=== PATIENT | female | born 2000 | race Hispanic/Latino ===

== ENCOUNTER 2021-03-21 15:44 | Outpatient (CLI) | payer OTHER | END 2021-03-21 15:45 | disposition home or self-care (01) | LOC: CSHULT 15:44 | PROVIDERS: ATTEND Family Medicine | DX: Z34.82 Encounter for supervision of other normal pregnancy, second trimester (principal); Z3A.25 25 weeks gestation of pregnancy | CPT/HCPCS: 76805 ==

== ENCOUNTER 2021-06-17 09:10 | Inpatient (IN) | payer OTHER ==
[2021-06-17] MEDS ORDERED: hydrALAZINE 20 MG/ML VIAL SLOW IVP PRN ×3 (09:39→22:37)
[2021-06-17 09:46] VITALS: BMI 31.8
[2021-06-17 10:21] LABS: Fetal Membranes Rupture RUPTURE DETECTED (No Rupture)
[2021-06-17] MEDS ORDERED: Butorphanol Tartrate 1 MG/ML VIAL SLOW IVP PRN (10:32)
[2021-06-17] MEDS ORDERED: Diphenoxylate HCl/Atropine Tablet PO PRN ×2 (10:32)
[2021-06-17] MEDS ORDERED: Ondansetron PF 4 MG/2 ML Vial IVP PRN ×2 (10:32→22:37)
[2021-06-17] MEDS ORDERED: HYDROcodone/Acetaminophen 5/325 mg Tablet PO PRN ×4 (10:32→22:37)
[2021-06-17] MEDS ORDERED: Methylergonovine 0.2 MG/ML VIAL IM PRN (10:32)
[2021-06-17] MEDS ORDERED: Promethazine HCl 25 MG/ML VIAL IM PRN ×2 (10:32→22:37)
[2021-06-17] MEDS ORDERED: Acetaminophen 500 MG TAB PO PRN (10:32)
[2021-06-17] MEDS ORDERED: Carboprost 250 MCG/ML AMP IM PRN (10:32)
[2021-06-17] MEDS ORDERED: Misoprostol 200 MCG TAB PR PRN (10:32)
[2021-06-17] MEDS ORDERED: Ibuprofen 800 MG TAB PO PRN (10:32)
[2021-06-17] MEDS ORDERED: Lidocaine 1% (PF) 30 ML VIAL SC PRN (10:32)
[2021-06-17] MEDS ORDERED: NS w/ Oxytocin 30 units 500 ML IV SCH ×2 (10:45→22:37)
[2021-06-17] MEDS ORDERED: Lactated Ringer's 1,000 ML IV SCH (10:45)
[2021-06-17] MEDS: NS w/ Oxytocin 30 units 500 ML IV SCH ×2 (11:28→20:46)
[2021-06-17 11:46] LABS: Hemoglobin 11.4 g/dL (12.0-15.5); Mean Corpuscular Hemoglobin 33.9 pg (27.0-33.0); Mean Corpuscular Volume 99.7 fl (81.6-98.3); Mean Platelet Volume 9.9 fl (7.4-10.4); Platelet Count 286 10x3/uL (150-450); RBC Distribution Width 12.3 % (11.5-14.5); Red Blood Cell (RBC) Count 3.36 10x6/uL (3.90-5.03); White Blood Cell (WBC) Count 7.5 10x3/uL (3.5-10.5)
[2021-06-17 12:22] LABS: SARS-CoV-2 NAA Rapid Test DETECTED (NotDetected)
[2021-06-17 12:24] LABS: Hep B Surf Ag Non-Reactive S/CO (NonReactive); Syphilis Antibody Nonreactive (Nonreactive); Syphilis Antibody Index 0.03 S/CO (<1.00 Non-Reactive)
[2021-06-17 12:44] LABS: HBSAg Index 0.17 S/CO (0-0.99)
[2021-06-17] MEDS ORDERED: Fentanyl 2 mcg/Bup 0.1% Cadd 100 ML ONE (16:34)
[2021-06-17] MEDS ORDERED: Mineral Oil ENEMA ONE (17:32)
[2021-06-17] MEDS ORDERED: Benzocaine-Menthol 82.5 ML CAN TOP PRN (22:37)
[2021-06-17] MEDS ORDERED: Boostrix 0.5 ML (Tdap) VIAL IM ONE (22:37)
[2021-06-17] MEDS ORDERED: Milk Of Magnesia 30 ML UDCUP PO PRN (22:37)
[2021-06-17] MEDS ORDERED: diphenhydrAMINE 25 MG CAP PO PRN (22:37)
[2021-06-17] MEDS ORDERED: Bisacodyl 10 MG SUPP PR PRN (22:37)
[2021-06-17] MEDS ORDERED: Lanolin Ointment 7 GM TUBE TOP PRN (22:37)
[2021-06-18] MEDS: Ibuprofen 800 MG TAB PO SCH ×4 (05:08→22:21)
[2021-06-18] MEDS ORDERED: Prenatal Vitamin 1 TAB PO SCH (09:00)
[2021-06-18] MEDS: Docusate Calcium (SURFAK) 240 MG CAP PO SCH ×3 (10:21→22:22)
[2021-06-18] MEDS: Ferrous Sulfate 325 MG TAB PO SCH ×2 (10:47→16:01)
[2021-06-18 11:33] VITALS: BP 115/62
[2021-06-18 16:00] VITALS: TEMP 98.8
[2021-06-19] MEDS: Ibuprofen 800 MG TAB PO SCH (06:25)
[2021-06-19] MEDS: Ferrous Sulfate 325 MG TAB PO SCH (08:01)
== END 2021-06-19 10:20 | disposition home or self-care (01) | DRG 805 ==
LOC: CSHLD/OP 09:10 → CSHLD 17:09 → CSHANTE 06-18 09:53
PROVIDERS: ADMIT Family Medicine; ATTEND Family Medicine
PROC: 10E0XZZ Delivery of Products of Conception, External Approach (ICD-10-PCS; principal; 2021-06-17)
DX: O42.02 Full-term premature rupture of membranes, onset of labor within 24 hours of rupture (principal); U07.1 COVID-19; Z37.0 Single live birth; O98.52 Other viral diseases complicating childbirth; Z3A.39 39 weeks gestation of pregnancy
CPT/HCPCS: 36415; 84112; 85027; 86780; 86850; 86900; 86901; 87340; J2590; U0002

== ENCOUNTER 2023-06-17 16:52 | Day surgery (SDC) | payer OTHER ==
[2023-06-17 17:24] VITALS: BMI 28.7
[2023-06-17] MEDS ORDERED: hydrALAZINE 20 MG/ML VIAL SLOW IVP PRN (17:39)
[2023-06-17 19:13] LABS: Fetal Membranes Rupture No Membranes Rupture (No Rupture)
== END 2023-06-17 21:20 | disposition home or self-care (01) ==
LOC: CSHLD/OP 16:52
PROVIDERS: ATTEND Obstetrics & Gynecology
DX: O47.03 False labor before 37 completed weeks of gestation, third trimester (principal); O98.512 Other viral diseases complicating pregnancy, second trimester; J10.1 Influenza due to other identified influenza virus with other respiratory manifestations; O99.891 Other specified diseases and conditions complicating pregnancy; N89.8 Other specified noninflammatory disorders of vagina; M79.606 Pain in leg, unspecified; Z3A.27 27 weeks gestation of pregnancy
CPT/HCPCS: 76815; 80053; 84112; 85025; 85379; 87480; 87510; 87660; 93970

== ENCOUNTER 2023-08-20 15:19 | Day surgery (SDC) | payer OTHER ==
[2023-08-20 15:55] VITALS: BMI 33.6
[2023-08-20 16:48] LABS: Fetal Membranes Rupture No Membranes Rupture (No Rupture)
[2023-08-20] MEDS ORDERED: hydrALAZINE 20 MG/ML VIAL SLOW IVP PRN (16:59)
== END 2023-08-20 17:19 | disposition home or self-care (01) ==
LOC: CSHLD/OP 15:19
PROVIDERS: ATTEND Family Medicine
DX: Z03.71 Encounter for suspected problem with amniotic cavity and membrane ruled out (principal); O99.343 Other mental disorders complicating pregnancy, third trimester; F41.9 Anxiety disorder, unspecified; F32.A Depression, unspecified; O99.613 Diseases of the digestive system complicating pregnancy, third trimester; K21.9 Gastro-esophageal reflux disease without esophagitis; O99.283 Endocrine, nutritional and metabolic diseases complicating pregnancy, third trimester; E55.9 Vitamin D deficiency, unspecified; Z3A.36 36 weeks gestation of pregnancy
CPT/HCPCS: 84112

== ENCOUNTER 2023-08-26 22:27 | Inpatient (IN) | payer OTHER ==
[2023-08-26 22:48] VITALS: BMI 35.0
[2023-08-26] MEDS ORDERED: hydrALAZINE 20 MG/ML VIAL SLOW IVP PRN (23:43)
[2023-08-27 00:11] LABS: Fetal Membranes Rupture RUPTURE DETECTED (No Rupture)
[2023-08-27] MEDS ORDERED: Ondansetron PF 4 MG/2 ML Vial IVP PRN ×3 (00:48→17:25)
[2023-08-27] MEDS ORDERED: Acetaminophen 500 MG TAB PO PRN (00:48)
[2023-08-27] MEDS ORDERED: Promethazine HCl 25 MG/ML VIAL IM PRN ×3 (00:48→17:25)
[2023-08-27] MEDS ORDERED: fentaNYL 50 mcg/mL 1 mL Vial SLOW IVP PRN (00:48)
[2023-08-27] MEDS ORDERED: Tranexamic Acid 1,000 MG/10 ML VIAL IVP PRN (00:48)
[2023-08-27] MEDS ORDERED: Carboprost 250 MCG/ML AMP IM PRN (00:48)
[2023-08-27] MEDS ORDERED: Diphenoxylate HCl/Atropine Tablet PO PRN (00:48)
[2023-08-27] MEDS ORDERED: hydrALAZINE 20 MG/ML VIAL SLOW IVP PRN ×2 (00:48→17:25)
[2023-08-27] MEDS ORDERED: Methylergonovine 0.2 MG/ML VIAL IM PRN (00:48)
[2023-08-27] MEDS ORDERED: Misoprostol 200 MCG TAB PR PRN (00:48)
[2023-08-27] MEDS ORDERED: Lactated Ringer's 1,000 ML IV SCH (01:00)
[2023-08-27] MEDS ORDERED: Oxytocin 30 units/NS 500 ML 500 ML IV SCH (01:00)
[2023-08-27 01:20] LABS: Hematocrit 32.8 % (34.9-44.5); Hemoglobin 11.5 g/dL (12.0-15.5); Mean Corpuscular HGB CONC 35.1 g/dL (32.0-36.0); Mean Corpuscular Hemoglobin 34.3 pg (27.0-33.0); Mean Corpuscular Volume 97.9 fl (81.6-98.3); Platelet Count 231 10x3/uL (150-450); RBC Distribution Width 12.1 % (11.5-14.5); Red Blood Cell (RBC) Count 3.35 10x6/uL (3.90-5.03); White Blood Cell (WBC) Count 5.8 10x3/uL (3.5-10.5)
[2023-08-27 01:54] LABS: HBSAg Index 0.19 S/CO (0-0.99); Hep B Surf Ag - L&D Non-Reactive S/CO (NonReactive)
[2023-08-27 01:55] LABS: Syphilis Antibody Nonreactive (Nonreactive); Syphilis Antibody Index 0.04 S/CO (<1.00 Non-Reactive)
[2023-08-27] MEDS ORDERED: Oxytocin 30 units/NS 500 ML 500 ML IVPB SCH (06:00)
[2023-08-27] MEDS ORDERED: Bupivacaine 0.25% HCL 30 ML VIAL ONE (08:00)
[2023-08-27] MEDS ORDERED: Bupivacaine PF 0.5% 30 ML VIAL ONE (08:00)
[2023-08-27] MEDS ORDERED: fentaNYL/Ropivacaine Epidural 100 ML ONE (10:47)
[2023-08-27] MEDS ORDERED: Dexmedetomidine 200 MCG/2 ML VIAL ONE (11:16)
[2023-08-27] MEDS ORDERED: ePHEDrine Sulfate 50 MG/10 ML VIAL SLOW IVP PRN (11:30)
[2023-08-27] MEDS ORDERED: Communication Order-Pharmacy FS SCH (11:30)
[2023-08-27] MEDS ORDERED: Naloxone HCl 0.4 mg/ml Vial IVP PRN ×2 (11:30)
[2023-08-27] MEDS ORDERED: Lactated Ringer's 500 ML IV PRN (11:30)
[2023-08-27] MEDS ORDERED: Moisturizing Cream (Eucerin) 113 GM JAR TOP PRN (11:30)
[2023-08-27] MEDS ORDERED: fentaNYL 2 mcg/Ropivacaine 0.2% Epidural 100 ML CADD EPIDURAL SCH (11:30)
[2023-08-27] MEDS ORDERED: diphenhydrAMINE 50 MG/ML VIAL IVP PRN (11:30)
[2023-08-27] MEDS ORDERED: Acetaminophen 325 MG TAB PO PRN (11:30)
[2023-08-27] MEDS ORDERED: Ibuprofen 800 MG TAB PO SCH (14:00)
[2023-08-27] MEDS ORDERED: Boostrix 0.5 ML (Tdap) VIAL (>/=7 yrs of age) IM ONE (17:25)
[2023-08-27] MEDS ORDERED: diphenhydrAMINE 25 MG CAP PO PRN (17:25)
[2023-08-27] MEDS ORDERED: HYDROcodone/Acetaminophen 5/325 mg Tablet PO PRN (17:25)
[2023-08-27] MEDS ORDERED: Lanolin Ointment 7 GM TUBE TOP PRN (17:25)
[2023-08-27] MEDS ORDERED: Milk Of Magnesia 30 ML UDCUP PO PRN (17:25)
[2023-08-27] MEDS ORDERED: Bisacodyl 10 MG SUPP PR PRN (17:25)
[2023-08-27] MEDS ORDERED: Ferrous Sulfate 325 MG TAB PO SCH (18:00)
[2023-08-27] MEDS: Docusate 100 MG CAP PO SCH (21:54)
[2023-08-27] MEDS: Ibuprofen 800 MG TAB PO SCH (21:54)
[2023-08-28] MEDS: Ibuprofen 800 MG TAB PO SCH ×2 (05:56→13:59)
[2023-08-28] MEDS ORDERED: Ferrous Sulfate 325 MG TAB PO SCH (08:00)
[2023-08-28] MEDS: Docusate 100 MG CAP PO SCH (08:19)
[2023-08-28] MEDS ORDERED: Prenatal Vitamin 1 TAB PO SCH (09:00)
[2023-08-28 09:43] VITALS: TEMP 98.3
[2023-08-28 11:27] VITALS: BP 112/65
== END 2023-08-28 17:05 | disposition home or self-care (01) | DRG 807 ==
LOC: CSHLD/OP 22:27 → CSHLD 08-27 01:10 → CSHPP 08-27 15:21
PROVIDERS: ADMIT Family Medicine; ATTEND Family Medicine
PROC: 10907ZC Drainage of Amniotic Fluid, Therapeutic from Products of Conception, Via Natural or Artificial Opening (ICD-10-PCS; principal; 2023-08-27)
PROC: 10E0XZZ Delivery of Products of Conception, External Approach (ICD-10-PCS; 2023-08-27)
PROC: 3E033XZ Introduction of Vasopressor into Peripheral Vein, Percutaneous Approach (ICD-10-PCS; 2023-08-27)
DX: O42.02 Full-term premature rupture of membranes, onset of labor within 24 hours of rupture (principal); Z37.0 Single live birth; Z3A.37 37 weeks gestation of pregnancy
CPT/HCPCS: 84112; 85027; 86780; 86850; 86900; 86901; 87340; J0665